=== PATIENT | male | born 1945 | race Caucasian/White ===

== ENCOUNTER → 2017-04-14 | Outpatient (CLI) | payer OTHER | END | disposition home or self-care (01) | LOC: SHCH 12:36 | PROVIDERS: ATTEND Internal Medicine Cardiovascular Disease | DX: I10 Essential (primary) hypertension (principal); I31.3 Pericardial effusion (noninflammatory); R94.31 Abnormal electrocardiogram [ECG] [EKG] | CPT/HCPCS: 93306 ==

== ENCOUNTER → 2019-01-16 | Outpatient (CLI) | payer OTHER | END | disposition home or self-care (01) | LOC: SHCH 14:33 | PROVIDERS: ATTEND Internal Medicine Cardiovascular Disease | DX: I10 Essential (primary) hypertension (principal) | CPT/HCPCS: 93975 ==

== ENCOUNTER 2021-05-03 13:46 | Emergency (ER) | payer OTHER ==
[~2021-05-03] VITALS: Ht 185.4 cm; Wt 90.7 kg
[~2021-05-03 13:46] MED LIST: ACET-66 PO; ASPI-556 PO; BUPR100T13 PO; CYCL-309 PO; FISH1CAP20 PO; FLUT16H NASAL; HYDR-4068 PO; LISI40TA9 PO; MULT-1258 PO; PRAV80TA21 PO; RISP2TAB53 PO; SERT-440 PO
[2021-05-03 14:31] LABS: HEMATOCRIT 43.9 % (42-54); MEAN CORPUSCULAR HEMOGLOBIN 28.3 pg (27.0-33.0); MEAN CORPUSCULAR HGB CONC 32.1 g/dL (32.0-36.0); PLATELET COUNT (AUTO) 274 K/uL (130-400); RED BLOOD CELL COUNT(AUTO) 4.99 MIL/uL (4.50-6.20); RED CELL DISTRIBUTION WIDTH 14.4 % (11.0-15.5); WHITE BLOOD COUNT (AUTO) 7.6 K/uL (4.8-10.8)
[2021-05-03 14:45] LABS: INR 1.03 (0.85-1.15); PROTHROMBIN TIME 11.2 SEC (9.6-11.6)
[2021-05-03 14:46] LABS: PARTIAL THROMBOPLASTIN TIME 28.3 SEC (26.3-35.5)
[2021-05-03 14:47] LABS: POTASSIUM 3.8 mmol/L (3.5-5.1)
[2021-05-03 14:51] LABS: ALBUMIN 4.2 g/dL (3.5-5.0); BILIRUBIN,TOTAL 0.4 mg/dL (0.2-1.0); TOTAL PROTEIN, SERUM 8.1 g/dL (6.0-8.3)
[2021-05-03 15:01] VITALS: BP 133/63
[2021-05-03 15:43] LABS: EOSINOPHILS % (MANUAL) 4 % (1-6); LYMPHOCYTES % (MANUAL) 14 % (22-44); MONOCYTES % (MANUAL) 6 % (2-9); REACTIVE LYMPHOCYTES 1 % (0-0); SEGMENTED NEUTROPHILS % 75 % (40-70)
[2021-05-03 15:44] LABS: MAN.DIFF COMMENT-IMPRESSION MANUAL DIFFERENTIAL; PLATELET MORPHOLOGY COMMENT ADEQUATE
== END 2021-05-03 15:19 | disposition home or self-care (01) ==
LOC: EDH 13:46
DX: R19.7 Diarrhea, unspecified (principal); R19.5 Other fecal abnormalities; R11.10 Vomiting, unspecified; I10 Essential (primary) hypertension; Z88.0 Allergy status to penicillin; Z79.82 Long term (current) use of aspirin; Z79.899 Other long term (current) drug therapy
CPT/HCPCS: 36415; 80053; 82270; 85025; 85610; 85730

== ENCOUNTER → 2021-07-06 | Outpatient (CLI) | payer OTHER | LOC: SHCH 08:09 | PROVIDERS: ATTEND Internal Medicine Cardiovascular Disease | DX: R01.1 Cardiac murmur, unspecified (principal); R09.89 Other specified symptoms and signs involving the circulatory and respiratory systems; I08.0 Rheumatic disorders of both mitral and aortic valves | CPT/HCPCS: 93306; 93880; 93978 ==

== ENCOUNTER → 2021-10-12 | Outpatient (CLI) | payer OTHER ==
[~2021-10-12] MED LIST changes: +IOHEXOL 350 MG/ML 100ML INFUS..BTL IV ONE; +IOHEXOL-350 50ML VIAL IV ONE
== END | disposition home or self-care (01) ==
LOC: RAH 08:28
PROVIDERS: ATTEND Internal Medicine Cardiovascular Disease
DX: I70.0 Atherosclerosis of aorta (principal); I71.4 Abdominal aortic aneurysm, without rupture
CPT/HCPCS: 75635; Q9967 ×2

== ENCOUNTER → 2022-05-11 | Outpatient (CLI) | payer OTHER ==
[~2022-05-11] MED LIST changes: -IOHEXOL 350 MG/ML 100ML INFUS..BTL IV ONE; -IOHEXOL-350 50ML VIAL IV ONE
== END | disposition home or self-care (01) ==
LOC: RESP 08:44
PROVIDERS: ATTEND Internal Medicine Cardiovascular Disease
DX: J18.9 Pneumonia, unspecified organism (principal); R06.02 Shortness of breath; Z86.16 Personal history of COVID-19
CPT/HCPCS: 94060; 94727; 94729

== ENCOUNTER → 2024-02-05 | Outpatient (CLI) | payer OTHER ==
--- NOTE | 2024-02-06 08:03 | HMCSR ---
APPROVED REPORT EXAM: Two-dimensional and M-mode echocardiogram with Doppler and color Doppler. INDICATION ICD: I35.0 Non-rheumatic aortic valve stenosis 2D Dimensions RVDd3.9 cmLVEF(%)58.5 (>50%)LVED Vol(simp.)135.0 mL IVSd1.1 (0.7-1.1cm)FS(%)31 %LVES Vol(simp.)55.0 mL LVDd5.0 (3.8-5.6cm)LA (2D)3.9 (1.6-4.0cm)LVEF(%, simp.)59 % PWd1.1 (0.7-1.1cm)Ao Root(2D)3.7 (2.0-3.7cm)LA ESV INDEX (BP)30.19 mL/m2 LVDs3.5 (2.5-4.0cm)LVOT diam2.0 (1.8-2.4cm) IVC diam1.1 cm M-Mode Dimensions EPSS1.1 cm Aortic Valve AoV Vmax2.4 m/Ming Peak GR22.2 mmHgLVOT Vmax1.0 m/s AoV VTI0.5 mAo Mean GR12.5 mmHgLVOT VTI0.24 m SARAH (VMAX)1.5 cm2AVA (VTI) 1.5 cm2 Mitral Valve MV E Vmax58.6 cm/sDECEL Fiie430 msMR OCW213 cm2 MV A Vmax87.4 cm/sP 1/2 T82 ms E/A ratio0.7MVA (PHT)2.7 cm2 MR Max PG124 mmHgMR Mean PG90 mmHg TDI E/E' Mhqydq36.2E/E' Crrymen66.6 Pulmonary Valve PV Vmax0.8 m/sPV VTI0.16 mPV Mean GR2 mmHg PV Peak GR2.5 mmHgPI End Tricia. Darrin 1.1 cm/s Tricuspid Valve TR Vmax2.7 m/sRAP (EST) 3 ryIhIIDH78.9 mmHg TR Peak GR28.9 mmHg Left Ventricle Left ventricular cavity size is normal. Septal motion consistent with conduction abnormality. There i s borderline concentric left ventricular hypertrophy. LVEF is 55-60%. No left ventricle thrombus note d on this study. Grade 1 diastolic dysfunction Right Ventricle The right ventricle is normal size. The right ventricular systolic function is normal. Atria The left atrium size is normal. The right atrium size is normal. Aortic Valve Aortic valve is trileaflet. Aortic valve is calcified. Trace aortic regurgitation. Calculated aortic valve area is 1.5 cm2 with maximum pressure gradient of 22.2 mmHg and mean pressure gradient of 12.5 mmHg, consistent with mild . Mitral Valve Mitral valve leaflets are mildly sclerotic but open well. Mitral regurgitation is trace to mild. Ther e is no mitral valve stenosis. Tricuspid Valve The tricuspid valve leaflets appear normal. There is trace to mild tricuspid regurgitation. Right oma tricular systolic pressure is estimated at 30-40 mmHg. Pulmonic Valve The pulmonic valve leaflets are thin and pliable; valve motion is normal. There is trace to mild valv ular regurgitation. Great Vessels The aortic root is normal in size. The IVC is normal in size and collapses >50% with inspiration. Pericardium No pericardial effusion. Conclusion Left ventricular cavity size is normal. There is borderline concentric left ventricular hypertrophy. LVEF is 55-60%. Grade 1 diastolic dysfunction Septal motion consistent with conduction abnormality. The right ventricle is normal size. The left atrium size is normal. Aortic valve is trileaflet. Aortic valve is calcified. Trace aortic regurgitation. Calculated aortic valve area is 1.5 cm2 with maximum pressure gradient of 22.2 mmHg and mean pressure gradient of 12.5 mmHg, consistent with mild . Mitral valve leaflets are mildly sclerotic but open well. Mitral regurgitation is trace to mild. There is trace to mild tricuspid regurgitation. Right ventricular systolic pressure is estimated at 30-40 mmHg. There is trace to mild valvular regurgitation. The aortic root is normal in size. The IVC is normal in size and collapses >50% with inspiration. No pericardial effusion.
== END | disposition home or self-care (01) ==
LOC: SHCH 08:09
PROVIDERS: ATTEND Internal Medicine Cardiovascular Disease
DX: I08.8 Other rheumatic multiple valve diseases (principal); I35.0 Nonrheumatic aortic (valve) stenosis
CPT/HCPCS: 93306

== ENCOUNTER → 2024-06-24 | Outpatient (CLI) | payer OTHER ==
--- NOTE | 2024-06-24 14:39 | HMCIMG ---
CT HEART SAVER PROMOTIONAL HISTORY: Calcium scoring COMPARISON: None TECHNIQUE: Computed tomography of the heart was performed with ECG gating and suspended respiration. Postprocessing was performed on a computer workstation to obtain diastolic phase images, determine calcium score and provide a quantitative assessment of extent of disease. This CT included only the heart. HeartSaver score is 1149. Please see cardiac calcium score report. The available CT chest images show no acute finding. CT was performed with one or more following dose reduction techniques: automated exposure control, adjustment of the mA and kv according to patient's size, or use of a iterative reconstruction technique.
== END | disposition home or self-care (01) ==
LOC: RAH 13:54
PROVIDERS: ATTEND Internal Medicine Cardiovascular Disease
DX: Z13.6 Encounter for screening for cardiovascular disorders (principal)
CPT/HCPCS: 75571

== ENCOUNTER 2024-08-07 08:45 | Day surgery (SDC) | payer OTHER ==
--- NOTE | 2024-08-05 09:23 | EKG ---
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
[2024-08-05 09:42] VITALS: BP 140/70; PULSE 54; RESP 18; TEMP 97.2
[2024-08-05 09:43] LABS: BASOPHILS # (AUTO) 0.13 K/uL (0.00-0.20); BASOPHILS % (AUTO) 1.8 % (0.0-5.0); EOSINOPHILS # (AUTO) 1.04 K/uL (0.00-0.70); EOSINOPHILS % (AUTO) 14.3 % (0.0-8.0); HEMATOCRIT 46.8 % (42-54); IMMATURE GRANULOCYTE ABSOLUTE 0.04 K/uL (0-1); LYMPHOCYTES # (AUTO) 1.2 K/uL (1.0-4.8); LYMPHOCYTES % (AUTO) 15.8 % (21.0-51.0); MEAN CORPUSCULAR HGB CONC 32.3 g/dL (32.0-36.0); MONOCYTES # (AUTO) 0.5 K/uL (0.1-1.0); MONOCYTES % (AUTO) 6.7 % (3.0-13.0); NEUTROPHILS # (AUTO) 4.4 K/uL (1.8-7.7); NEUTROPHILS % (AUTO) 60.9 % (40.0-77.0); PLATELET COUNT (AUTO) 264 K/uL (130-400); RED CELL DISTRIBUTION WIDTH 14.6 % (11.0-15.5); WHITE BLOOD COUNT (AUTO) 7.3 K/uL (4.8-10.8)
[2024-08-05 09:52] LABS: CREATININE 1.2 mg/dL (0.5-1.3); POTASSIUM 4.3 mmol/L (3.5-5.1)
[2024-08-05 09:54] LABS: INR 1.05 (0.85-1.15); PROTHROMBIN TIME 11.1 SEC (9.6-11.6)
[2024-08-05 09:55] LABS: PARTIAL THROMBOPLASTIN TIME 26.9 SEC (26.3-35.5)
[2024-08-05 09:56] LABS: APPEARANCE,URINE CLEAR (CLEAR); BILIRUBIN,URINE NEGATIVE (NEGATIVE); COLOR,URINE YELLOW (YELLOW); GLUCOSE, URINE (UA) NEGATIVE (NEGATIVE); KETONES,URINE NEGATIVE (NEGATIVE); LEUKOCYTE ESTERASE ,URINE NEGATIVE Leu/uL (NEGATIVE); NITRATE,URINE NEGATIVE (NEGATIVE); OCCULT BLOOD,URINE NEGATIVE (NEGATIVE); PH,URINE 6.5 (5.0-8.0); PROTEIN,URINE 10 mg/dL (NEGATIVE)
[2024-08-05 10:04] LABS: ADD UA MICROSCOPIC YES
[2024-08-05 10:07] LABS: MUCUS,URINE RARE LPF (None Seen); RBC,URINE 0-1 /HPF (0-1)
[2024-08-05 10:14] LABS: B-TYPE NATRIURETIC PEPTIDE 9 pg/mL (0-100)
--- NOTE | 2024-08-05 16:48 | HMCIMG ---
CHEST 1VW REASON: heart cath COMPARISON: 03/27/2019 FINDINGS: Single view of the chest was obtained. Lungs are clear. Heart size is normal. There is no pulmonary vascular congestion. Mediastinum and bony thorax appear unremarkable. IMPRESSION: 1. Normal single view chest x-ray.
[2024-08-07] VITALS (10 sets, daily range): BP systolic 146–160; BP diastolic 75–91; PULSE 54–78; RESP 14–15; TEMP 97.3–97.8
[~2024-08-07] VITALS: Ht 182.9 cm; Wt 94.3 kg
[~2024-08-07 08:45] MED LIST changes: +ACET-2247 PO; -ACET-66 PO; +AMLO2.5T4 PO; +AZEL137S11 NS; +BUPR-72 PO; -BUPR100T13 PO; -FISH1CAP20 PO; -FLUT16H NASAL; -HYDR-4068 PO; +HYDR12.54 PO; +MELA5CAP PO; -MULT-1258 PO; -PRAV80TA21 PO; +ROSU40TA88 PO
[2024-08-07] MEDS ORDERED: 0.9%NACL 1000ML 1,000 ML IV SCH ×2 (12:30→14:30)
[2024-08-07] MEDS ORDERED: LIDOCAINE HCL 400MG/20ML VIAL ONE (13:21)
[2024-08-07] MEDS ORDERED: niCARDIpine 25MG INJ IV ONE (13:21)
[2024-08-07] MEDS ORDERED: HEParin-NS 1,000 UNIT/500 ML 1,000 ML IV ONE (13:21)
[2024-08-07] MEDS ORDERED: SODIUM BICARB 50MEQ 50ML VIAL 50 ML ONE (13:21)
[2024-08-07] MEDS ORDERED: HEParin 10,000 UNIT/10ML (1,000 UNIT/ML) VIAL ONE (13:21)
[2024-08-07] MEDS ORDERED: IOHEXOL 350 MG/ML 100ML INFUS..BTL IV ONE (13:21)
[2024-08-07] MEDS ORDERED: NITROGLYCERIN 50MG VIAL ONE (13:22)
[2024-08-07] MEDS ORDERED: ATROPINE 1MG SYG IVP ONE (13:40)
[2024-08-07] MEDS ORDERED: FENTanyl CITRate PF 50 MCG/1 ML 2ML VIAL ONE (13:40)
[2024-08-07] MEDS ORDERED: DOPamine HCL 400 MG/D5%-WATER 0 ML IV ONE (13:41)
[2024-08-07] MEDS ORDERED: MIDAZOLAM HCL 1 MG/ML 2ML VIAL ONE ×2 (13:41→14:04)
--- NOTE | 2024-08-07 15:11 | PR ---
PROCEDURES: * Left heart catheterization. * Selective right and left coronary arteriogram. * Conscious sedation for 45 minutes. INDICATIONS: * Elevated coronary calcium score. * Markedly abnormal Lexiscan Cardiolite. 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 COMPLICATIONS: None. TOTAL CONTRAST: 35 mL. APPROACH: Right radial approach. DESCRIPTION OF PROCEDURE: The patient was taken to the cardiac lab tech after appropriate operative consents were signed. He was prepped and draped in the usual fashion. After conscious sedation was administered, the right radial artery region was infiltrated with 2% Xylocaine without epinephrine. The right radial artery was then cannulated and 6-[place] sheath was advanced in retrograde fashion with a modified Seldinger technique. We utilized the radial slender sheath. At this point, a TIG 4 catheter was advanced over an indwelling wire and placed in the left ventricular cavity. Left ventricular end-diastolic pressure measurement was obtained. Pullback revealed no significant aortic stenosis. The catheter was then engaged with the ostium of the left main coronary artery. This was imaged in multiplane. The left main was enlarged and had some areas of calcification. It was free of stenosis. It bifurcated into an LAD, and a circumflex. The LAD was a moderately large vessel that gave rise to several diagonals and septal perforators. The LAD had minimal luminal irregularities, but no significant stenotic lesions. The first diagonal was a moderately-sized branching vessel. Circumflex was a moderately-sized vessel that gave rise to several marginal branches and ongoing circ. The first marginal branch was a very small vessel that had an ostial 70% lesion best seen in the [place] caudal views. The second marginal was a larger vessel that was branching. The superior branch was larger than the inferior branch. The proximal portion of the obtuse marginal 2 had a 60% stenotic lesion. There were areas of ectasia in that vessel, but no other significant stenotic lesions. Ongoing circ was smaller vessel, gave rise to a small distal OM without significant stenosis. The catheter was then withdrawn and engaged in the ostium of the right coronary artery, but did not seat well, so we elected to use an FR4, which was engaged in the right coronary artery and imaging was obtained in multiplane. The right coronary artery was a large vessel that gave rise to a small acute marginal branch and ongoing RCA with a PDA and PLVB. The RCA system was free of disease. At this point, the procedure was completed, the catheter was withdrawn over an indwelling wire. A radial band was applied after discontinuation of the sheath with good hemostasis. The patient tolerated the procedure well and left the cardiac lab tech in stable condition. During the procedure, the patient was noted to have significant bradycardia with heart rates in the high 40s and 50s in the initial part of the procedure. This responded well to administration of intravenous atropine. During the procedure, the patient had number of runs in which he had junctional rhythm with periods of isorhythmic AV dissociation. There was evidence of retrograde conduction when the patient had episodes of junctional rhythm. PLAN: Continue to optimize medical management and consider an EP evaluation. TID: [id number] RECEIPT: [id number]
--- NOTE | 2024-08-07 16:40 | NUR ---
WENT INTO PATIENTS ROOM TO TAKE OUT THE LAST OF THE AIR IN THE TR BAND NOTICED A SMALL HEMATOMA TO RIGHT RADIAL SITE. NO ACTIVE BLEEDING NOTED. I DID MASSAGE IT AREA NON TENDER PER PT. TR BAND LEFT ON FOR AN ADDITIONAL 15 MINUTES WILL RE ASSESS.
--- NOTE | 2024-08-07 17:00 | NUR ---
TR BAND REMOVED SLIGHT SLIGHT BRUISING NOTED NO HEMATOMA NOTED TO RIGHT RADIAL SITE. DRESSED WITH 2X2 TEGADERM.
--- NOTE | 2024-08-07 17:50 | NUR ---
DISCHARGE INSTRUCTIONS GIVEN TO BOTH PT AND IV REMOVED SITE ASYMPTOMATIC. RIGHT RADIAL SITE BRUISING NOTED NO SWELLING NOTED. PT SENT OUT VIA WHEELCHAIR DRIVING
== END 2024-08-07 18:11 | disposition home or self-care (01) ==
LOC: DAH 08:45
PROVIDERS: ATTEND Internal Medicine Cardiovascular Disease
DX: R94.39 Abnormal result of other cardiovascular function study (principal); I25.10 Atherosclerotic heart disease of native coronary artery without angina pectoris; I25.82 Chronic total occlusion of coronary artery; I35.0 Nonrheumatic aortic (valve) stenosis; I47.10 Supraventricular tachycardia, unspecified; I49.3 Ventricular premature depolarization; R00.1 Bradycardia, unspecified; J44.9 Chronic obstructive pulmonary disease, unspecified; Z79.899 Other long term (current) drug therapy; Z79.82 Long term (current) use of aspirin; Z90.49 Acquired absence of other specified parts of digestive tract; Z82.49 Family history of ischemic heart disease and other diseases of the circulatory system; Z88.8 Allergy status to other drugs, medicaments and biological substances; Z88.0 Allergy status to penicillin; Z79.01 Long term (current) use of anticoagulants
CPT/HCPCS: 80048; 83880; 85025; 85610; 85730; 81001; 36415; 71045; 93005; 93458; Q9965; C1769; C1894; J3010; J3490 ×4; J0461; J1644 ×2; J2250 ×2; Q9967; A4215; A4222; A4221; A4663; A4216; A4606; A4223 ×3; 99156; 99157; J1265